=== PATIENT | female | born 1935 | race Caucasian/White ===

== ENCOUNTER 2020-04-07 14:34 | Emergency (ER) | payer MEDICARE, OTHER, SELFPAY ==
[2020-04-07 15:06] VITALS: BP 171/70; PULSE 66; RESP 14; TEMP 36.9; O2SAT 97; BMI 25.0
--- NOTE | 2020-04-07 15:08 | HMH.EDUTC ---
[facility] Disposition Clinical Impression: Exposure to COVID-19 virus Disposition: Home, Self-Care Condition on Discharge: Good Instructions: Preventing the Spread of Coronavirus Discharge Instructions Additional Instructions: Drink plenty of fluids. Take tylenol or ibuprofen for pain or fever. Follow up with your regular doctor. GO TO THE ER FOR ANY WORSENING SYMPTOMS FOLLOW THE DIRECTIONS ON THE COVID-19 HAND OUT THAT WE GAVE YOU REGARDING SELF-ISOLATION UNTIL YOU KNOW YOUR COVID-19 RESULTS Referrals: Sadi Bull [Primary Care Provider] - Time of Disposition: 15:12 Medical Decision Making - Medical Records Medical records reviewed: No: I reviewed the patient's medical records. - Chon Inquiry Pt receiving controlled substance: No Vital Signs: 04/07/20 15:06 04/07/20 15:34 Temperature 98.4 F 98.4 F Temperature Source Oral Oral Pulse Rate 66 Pulse Rate [Radial] 66 Respiratory Rate 14 14 Blood Pressure 171/70 H Blood Pressure [Right Arm] 171/70 H Blood Pressure Mean [Right Arm] 103 Blood Pressure Source Automatic Cuff Blood Pressure Source [Right Arm] Automatic Cuff Blood Pressure Position Sitting Blood Pressure Position [Right Arm] Supine 02 Sat by Pulse Oximetry 97 Oxygen Delivery Method Room Air Room Air [facility] HPI - General Stated complaint: covid exposure Time Seen by Provider: 04/07/20 15:10 - History of Present Illness Provider Complaint: Her grand daugher was diagnosed with covid 19 yesterday. She has been around her niece. She denies any symptoms. - Related Data Allergies Allergy/AdvReac Type Severity Reaction Status Date / Time No Known Allergies Allergy Verified 04/07/20 15:09 [facility] History - Hepatitis A Screen Attestation statement:: This patient has been screened for Hepatitis A risk factors. I have reviewed the patient's past medical history: Yes ROS Obtained: Yes All systems reviewed & no additional complaints - Constitutional Constitutional: Denies chills, Denies fever(s) - Eyes Eyes: Denies eye discharge - ENT Ears, Nose, Mouth, and Throat: Denies dizziness, Denies otalgia, Denies sore throat - Respiratory Respiratory: No chest congestion, No cough Physical Exam - General General appearance: alert, in no apparent distress - Head Head exam: atraumatic, normocephalic, normal inspection - Eye Eye exam: Present: normal appearance, PERRL, EOMI - ENT ENT exam: Present: normal exam, normal oropharynx, mucous membranes moist, TM's normal bilaterally, normal external ear exam - Neck Neck exam: Present: normal inspection, full ROM, trachea midline. Absent: meningismus, lymphadenopathy - Chest Chest inspection: Present: normal inspection, symmetric chest wall rise. Absent: tenderness - Respiratory Respiratory exam: Present: normal lung sounds bilaterally. Absent: respiratory distress - Cardiovascular Cardiovascular exam: Present: regular rate, normal rhythm. Absent: JVD - Abdominal Exam Abdominal exam: Present: soft, normal bowel sounds. Absent: distention, tenderness, guarding - Extremities Exam Extremities exam: Present: normal inspection, full ROM, normal capillary refill. Absent: calf tenderness - Back Exam Back exam: Present: normal inspection. Absent: tenderness - Neurological Exam Neurological exam: Present: alert, oriented X3 - Psychiatric Psychiatric exam: Present: normal affect, normal mood - Skin Skin exam: Present: warm, dry, intact, normal color - Lymphatic Lymphatic Findings: no adenopathy
[2020-04-07 15:34] VITALS: BP 171/70; PULSE 66; RESP 14; TEMP 36.9; O2SAT 97
== END 2020-04-07 15:36 | disposition home or self-care (01) ==
PROVIDERS: Emergency Provider Nurse Practitioner Family; PCP Internal Medicine
DX: Z20.828 Contact with and (suspected) exposure to other viral communicable diseases (principal)
CPT/HCPCS: 99201; U0003